=== PATIENT | female | born 1950 | race Caucasian/White ===

== ENCOUNTER 2022-01-03 15:47 | Inpatient (IN) | payer MEDICAID ==
[~2022-01-03] VITALS: Ht 154.9 cm; Wt 73.2 kg
[2022-01-03] MEDS ORDERED: LOSA-381 PO (16:02)
[2022-01-03] MEDS ORDERED: METO25 PO (16:02)
[2022-01-03] MEDS ORDERED: NAPR-1197 PO (16:02)
[2022-01-03] MEDS ORDERED: ASPI-1450 PO (16:02)
[2022-01-03 16:32] LABS: BASOPHILS % (AUTO) 0.7 % (0.0-2.0); EOSINOPHILS % (AUTO) 1.5 % (1.0-6.0); HEMATOCRIT 34.1 % (36-46); HEMOGLOBIN 11.3 g/dL (12.0-16.0); LYMPHOCYTES # (AUTO) 1.2 K/uL (1.0-4.8); LYMPHOCYTES % (AUTO) 13.5 % (22.0-44.0); MEAN CORPUSCULAR HEMOGLOBIN 27.7 pg (26.0-34.0); MEAN CORPUSCULAR VOLUME 84 fL (80-100); MONOCYTES # (AUTO) 1.2 K/uL (0.1-1.0); MONOCYTES % (AUTO) 13.7 % (2.0-9.0); NEUTROPHILS # (AUTO) 6.2 K/uL (1.8-7.7); NEUTROPHILS % (AUTO) 70.6 % (40.0-70.0); PLATELET COUNT (AUTO) 173 K/uL (150-450); RED BLOOD CELL COUNT(AUTO) 4.07 MIL/uL (4.00-5.20); RED CELL DISTRIBUTION WIDTH 15.9 % (11.5-14.5)
[2022-01-03 16:41] LABS: CALCIUM, TOTAL 9.2 mg/dL (8.8-10.5); CREATININE 1.07 mg/dL (0.60-1.30); POTASSIUM 3.2 mmol/L (3.5-5.1)
[2022-01-03] MEDS ORDERED: SODIUM CHLORIDE 0.9% 100 ML ONE ×2 (16:45→17:12)
[2022-01-03] MEDS ORDERED: IOHEXOL 350 MG/ML 100 ML VIAL ONE (16:45)
[2022-01-03 16:46] LABS: INR 1.2 (0.9-1.1); PROTHROMBIN TIME 12.3 SEC (9.4-11.6)
[2022-01-03 16:47] LABS: ALBUMIN 3.8 g/dL (3.4-5.0); BILIRUBIN,TOTAL 0.7 mg/dL (0.1-1.0); TOTAL PROTEIN, SERUM 7.9 g/dL (6.4-8.2)
[2022-01-03] MEDS ORDERED: WATER FOR INJECTION STERILE IV ONE ×4 (17:00)
[2022-01-03] MEDS ORDERED: ALTEPLASE IV ONE ×4 (17:00)
[2022-01-03] MEDS ORDERED: ALTEPLASE PER STROKE PROTOCOL CLINICAL ONE (17:00)
[2022-01-03 17:33] LABS: COVID AG,FIA SOURCE NASOPHARYNGEAL
[2022-01-03] MEDS ORDERED: ONDANSETRON HCL 4 MG/2 ML VIAL IVP PRN ×2 (18:30)
[2022-01-03] MEDS ORDERED: ACETAMINOPHEN 325 MG TABLET PO PRN (18:30)
[2022-01-03 18:53] LABS: CHOL/HDL RATIO 2.2 (3.9-5.7)
[2022-01-03] MEDS: POTASSIUM CHL 10 MEQ/WATER 50 ML IV SCH ×3 (18:54→21:03)
[2022-01-03 18:55] LABS: HEMOGLOBIN A1C 7.9 % (3.8-5.6)
[2022-01-03] MEDS: OXYGEN THERAPY IH SCH (21:49)
[2022-01-03] MEDS ORDERED: DEXTROSE 50%-WATER 25 GM/50 ML SYRINGE IVP PRN (22:15)
[2022-01-03] MEDS: ACETAMINOPHEN 325 MG TABLET PO PRN (23:28)
[2022-01-03] MEDS ORDERED: SODIUM CHLORIDE 0.9% 250 ML IV ONE (23:38)
[2022-01-03] MEDS: CefTRIAXone 1 GM/DEXTROSE 50 ML IV SCH (23:57)
[2022-01-04] VITALS: BP 130/70
[2022-01-04] MEDS ORDERED: PNEUMOCOCCAL VACCINE POLYVALENT 0.5 ML VIAL [PPSV23] IM. ONE (00:45)
[2022-01-04] MEDS: AZITHROMYCIN 500 MG/NS 250 ML IV SCH (03:46)
[2022-01-04 04:00] VITALS: BP 116/58
[2022-01-04 05:17] LABS: BASOPHILS % (AUTO) 0.6 % (0.0-2.0); EOSINOPHILS % (AUTO) 3.1 % (1.0-6.0); HEMATOCRIT 32.9 % (36-46); HEMOGLOBIN 10.8 g/dL (12.0-16.0); LYMPHOCYTES # (AUTO) 1.9 K/uL (1.0-4.8); LYMPHOCYTES % (AUTO) 21.2 % (22.0-44.0); MEAN CORPUSCULAR HEMOGLOBIN 27.9 pg (26.0-34.0); MEAN CORPUSCULAR VOLUME 85 fL (80-100); MONOCYTES # (AUTO) 1.3 K/uL (0.1-1.0); MONOCYTES % (AUTO) 14.7 % (2.0-9.0); NEUTROPHILS # (AUTO) 5.4 K/uL (1.8-7.7); NEUTROPHILS % (AUTO) 60.4 % (40.0-70.0); PLATELET COUNT (AUTO) 157 K/uL (150-450); RED BLOOD CELL COUNT(AUTO) 3.88 MIL/uL (4.00-5.20); RED CELL DISTRIBUTION WIDTH 15.8 % (11.5-14.5)
[2022-01-04 05:43] LABS: ANION GAP 7 mmol/L (8-16); CALCIUM, TOTAL 8.6 mg/dL (8.8-10.5); CARBON DIOXIDE 31 mmol/L (22-29); CHLORIDE 97 mmol/L (98-107); CREATININE 0.99 mg/dL (0.60-1.30); GLUCOSE,RANDOM 69 mg/dL (70-110); POTASSIUM 3.3 mmol/L (3.5-5.1); SODIUM SERUM 135 mmol/L (136-145); UREA NITROGEN, BLOOD 34 mg/dL (7-18)
[2022-01-04 05:57] LABS: GLOMERULAR FILTR. RATE CALC 55 mL/min (>60)
[2022-01-04 06:26] LABS: GLUCOSE,POINT OF CARE 72 MG/DL (70-110)
[2022-01-04 08:00] VITALS: BP 121/69
[2022-01-04 09:08] LABS: FREE T4 (FREE THYROXINE) 1.73 ng/dL (0.76-1.46)
[2022-01-04] MEDS: OXYGEN THERAPY IH SCH ×2 (09:23→20:24)
[2022-01-04 12:00] VITALS: BP 127/64
[2022-01-04 12:36] LABS: GLUCOSE,POINT OF CARE 65 MG/DL (70-110)
[2022-01-04 13:46] LABS: GLUCOSE,POINT OF CARE 191 MG/DL (70-110)
[2022-01-04 14:16] LABS: APPEARANCE,URINE CLEAR (CLEAR); BILIRUBIN,URINE NEGATIVE (NEGATIVE); GLUCOSE, URINE (UA) NEGATIVE (NEGATIVE); KETONES,URINE NEGATIVE (NEGATIVE); LEUKOCYTE ESTERASE ,URINE NEGATIVE (NEGATIVE); NITRATE,URINE NEGATIVE (NEGATIVE); OCCULT BLOOD,URINE LARGE (NEGATIVE); PROTEIN,URINE NEGATIVE (NEGATIVE); SPECIFIC GRAVITIY, URINE 1.011 (1.003-1.030); UROBILINOGEN,URINE <=1.0 mg/dL (<=1.0)
[2022-01-04 14:24] LABS: BACTERIA,URINE None Seen /HPF (None Seen); SQUAMOUS EPITHELIAL CELL,UR Few /LPF (None Seen); WBC,URINE 0-2 /HPF (0-5)
[2022-01-04] MEDS: POTASSIUM CHL 10 MEQ/WATER 50 ML IV PRN ×3 (15:25→20:25)
[2022-01-04 16:00] VITALS: BP 127/64
[2022-01-04] MEDS ORDERED: SODIUM CHLORIDE 0.9% 250 ML IV ONE ×2 (16:02→20:33)
[2022-01-04 19:21] LABS: GLUCOSE,POINT OF CARE 84 MG/DL (70-110)
[2022-01-04 20:00] VITALS: BP 131/75
[2022-01-04] MEDS ORDERED: ASPIRIN 81 MG CHEWABLE TABLET PO SCH (21:00)
[2022-01-04] MEDS: INSULIN GLARGINE,HUM.REC.ANLOG 100 UNITS/ML SQ SCH (21:00)
[2022-01-04] MEDS: CefTRIAXone 1 GM/DEXTROSE 50 ML IV SCH (22:47)
[2022-01-05] VITALS: BP 134/75
[2022-01-05] MEDS: AZITHROMYCIN 500 MG/NS 250 ML IV SCH (02:55)
[2022-01-05 04:00] VITALS: BP 126/69
[2022-01-05 05:17] LABS: BASOPHILS % (AUTO) 0.8 % (0.0-2.0); EOSINOPHILS % (AUTO) 6.2 % (1.0-6.0); HEMATOCRIT 32.7 % (36-46); HEMOGLOBIN 10.8 g/dL (12.0-16.0); LYMPHOCYTES # (AUTO) 1.2 K/uL (1.0-4.8); LYMPHOCYTES % (AUTO) 16.8 % (22.0-44.0); MEAN CORPUSCULAR VOLUME 85 fL (80-100); NEUTROPHILS # (AUTO) 4.6 K/uL (1.8-7.7); NEUTROPHILS % (AUTO) 62.2 % (40.0-70.0); PLATELET COUNT (AUTO) 184 K/uL (150-450); RED BLOOD CELL COUNT(AUTO) 3.86 MIL/uL (4.00-5.20); RED CELL DISTRIBUTION WIDTH 15.6 % (11.5-14.5)
[2022-01-05 05:38] LABS: ALBUMIN 3.1 g/dL (3.4-5.0); BILIRUBIN,TOTAL 0.4 mg/dL (0.1-1.0); CALCIUM, TOTAL 8.7 mg/dL (8.8-10.5); CHOL/HDL RATIO 2.6 (3.9-5.7); CREATININE 0.95 mg/dL (0.60-1.30); POTASSIUM 3.5 mmol/L (3.5-5.1); TOTAL PROTEIN, SERUM 6.9 g/dL (6.4-8.2)
[2022-01-05 06:56] LABS: GLUCOSE,POINT OF CARE 110 MG/DL (70-110)
[2022-01-05 07:01] LABS: GLUCOSE,POINT OF CARE 77 MG/DL (70-110)
[2022-01-05 08:00] VITALS: BP 132/69
[2022-01-05] MEDS: OXYGEN THERAPY IH SCH ×2 (08:21→20:30)
[2022-01-05] MEDS ORDERED: ASPIRIN 81 MG CHEWABLE TABLET PO ONE (09:00)
[2022-01-05] MEDS ORDERED: AMIODARONE HCL 360 MG in DEXTROSE 5%-WATER 242.8 ML IV ONE (11:30)
[2022-01-05] MEDS ORDERED: AMIODARONE HCL 150 MG in DEXTROSE 5%-WATER 97 ML IV ONE (11:30)
[2022-01-05 12:00] VITALS: BP 140/79
[2022-01-05] MEDS: ACETAMINOPHEN 325 MG TABLET PO PRN (15:07)
[2022-01-05] MEDS ORDERED: POTASSIUM CHLORIDE 20 MEQ ER TABLET PO PRN ×3 (15:30→15:45)
[2022-01-05] MEDS: POTASSIUM CHLORIDE 20 MEQ ER TABLET PO PRN (15:38)
[2022-01-05 16:00] VITALS: BP 152/76
[2022-01-05 17:06] LABS: GLUCOSE,POINT OF CARE 83 MG/DL (70-110)
[2022-01-05] MEDS: INSULIN LISPRO 100 UNITS/ML SQ PRN (17:11)
[2022-01-05] MEDS ORDERED: AMIODARONE HCL 540 MG in DEXTROSE 5%-WATER 239.2 ML IV ONE (17:30)
[2022-01-05 20:00] VITALS: BP 145/75
[2022-01-05] MEDS: INSULIN GLARGINE,HUM.REC.ANLOG 100 UNITS/ML SQ SCH (20:45)
[2022-01-05 20:46] LABS: GLUCOSE,POINT OF CARE 146 MG/DL (70-110)
[2022-01-05 20:46] LABS: GLUCOSE,POINT OF CARE 133 MG/DL (70-110)
[2022-01-05] MEDS: CefTRIAXone 1 GM/DEXTROSE 50 ML IV SCH (22:02)
[2022-01-06] VITALS: BP 135/72
[2022-01-06] MEDS ORDERED: SODIUM CHLORIDE 0.9% 250 ML IV ONE ×2 (02:14→21:05)
[2022-01-06] MEDS: AZITHROMYCIN 500 MG/NS 250 ML IV SCH (03:54)
[2022-01-06 04:00] VITALS: BP 137/69
[2022-01-06] MEDS: INSULIN LISPRO 100 UNITS/ML SQ PRN ×3 (05:46→21:15)
[2022-01-06 05:47] LABS: BASOPHILS % (AUTO) 0.7 % (0.0-2.0); EOSINOPHILS % (AUTO) 5.4 % (1.0-6.0); HEMATOCRIT 32.5 % (36-46); HEMOGLOBIN 10.4 g/dL (12.0-16.0); LYMPHOCYTES # (AUTO) 1.6 K/uL (1.0-4.8); LYMPHOCYTES % (AUTO) 15.9 % (22.0-44.0); MEAN CORPUSCULAR HEMOGLOBIN 27.1 pg (26.0-34.0); MEAN CORPUSCULAR VOLUME 85 fL (80-100); MONOCYTES % (AUTO) 9.8 % (2.0-9.0); NEUTROPHILS # (AUTO) 6.8 K/uL (1.8-7.7); NEUTROPHILS % (AUTO) 68.2 % (40.0-70.0); PLATELET COUNT (AUTO) 200 K/uL (150-450); RED BLOOD CELL COUNT(AUTO) 3.83 MIL/uL (4.00-5.20); RED CELL DISTRIBUTION WIDTH 15.6 % (11.5-14.5)
[2022-01-06 05:56] LABS: CALCIUM, TOTAL 8.5 mg/dL (8.8-10.5); CREATININE 1.03 mg/dL (0.60-1.30); POTASSIUM 3.9 mmol/L (3.5-5.1)
[2022-01-06 08:00] VITALS: BP 155/85
[2022-01-06] MEDS: OXYGEN THERAPY IH SCH ×2 (08:00→19:58)
[2022-01-06] MEDS: APIXABAN 2.5 MG TABLET PO SCH ×2 (10:25→21:14)
[2022-01-06 12:00] VITALS: BP 156/99
[2022-01-06] MEDS: AMIODARONE HCL 750 MG in DEXTROSE 5%-WATER 485 ML IV SCH (12:23)
[2022-01-06] MEDS: METOPROLOL SUCCINATE 50 MG ER TABLET PO SCH ×2 (13:14→13:23)
[2022-01-06 14:06] LABS: GLUCOSE,POINT OF CARE 239 MG/DL (70-110)
[2022-01-06 14:06] LABS: GLUCOSE,POINT OF CARE 169 MG/DL (70-110)
[2022-01-06 16:00] VITALS: BP 160/88
[2022-01-06 19:41] LABS: GLUCOSE,POINT OF CARE 201 MG/DL (70-110)
[2022-01-06 20:00] VITALS: BP 136/107
[2022-01-06] MEDS: CefTRIAXone 1 GM/DEXTROSE 50 ML IV SCH (21:14)
[2022-01-06] MEDS: INSULIN GLARGINE,HUM.REC.ANLOG 100 UNITS/ML SQ SCH (21:18)
[2022-01-07] VITALS: BP 147/89
[2022-01-07 02:16] LABS: GLUCOSE,POINT OF CARE 203 MG/DL (70-110)
[2022-01-07 04:00] VITALS: BP 132/75
[2022-01-07] MEDS: AZITHROMYCIN 500 MG/NS 250 ML IV SCH (04:09)
[2022-01-07] MEDS: ACETAMINOPHEN 325 MG TABLET PO PRN (04:13)
[2022-01-07 06:16] LABS: BASOPHILS % (AUTO) 0.2 % (0.0-2.0); EOSINOPHILS % (AUTO) 1.7 % (1.0-6.0); HEMATOCRIT 31.2 % (36-46); HEMOGLOBIN 10.1 g/dL (12.0-16.0); LYMPHOCYTES # (AUTO) 1.5 K/uL (1.0-4.8); LYMPHOCYTES % (AUTO) 10.5 % (22.0-44.0); MEAN CORPUSCULAR HEMOGLOBIN 27.6 pg (26.0-34.0); MEAN CORPUSCULAR HGB CONC 32.5 G/dL (31.0-37.0); MEAN CORPUSCULAR VOLUME 85 fL (80-100); MONOCYTES # (AUTO) 1.2 K/uL (0.1-1.0); MONOCYTES % (AUTO) 8.4 % (2.0-9.0); NEUTROPHILS # (AUTO) 11.6 K/uL (1.8-7.7); NEUTROPHILS % (AUTO) 79.2 % (40.0-70.0); PLATELET COUNT (AUTO) 215 K/uL (150-450); RED BLOOD CELL COUNT(AUTO) 3.68 MIL/uL (4.00-5.20); RED CELL DISTRIBUTION WIDTH 15.5 % (11.5-14.5)
[2022-01-07] MEDS: INSULIN LISPRO 100 UNITS/ML SQ PRN ×4 (06:17→21:22)
[2022-01-07 06:26] LABS: GLUCOMETER DEV NAME(LOC) 5S.1B; GLUCOSE,POINT OF CARE 187 MG/DL (70-110)
[2022-01-07 06:28] LABS: ALBUMIN 2.8 g/dL (3.4-5.0); BILIRUBIN,TOTAL 0.5 mg/dL (0.1-1.0); CALCIUM, TOTAL 8.6 mg/dL (8.8-10.5); CREATININE 0.98 mg/dL (0.60-1.30); POTASSIUM 3.9 mmol/L (3.5-5.1); TOTAL PROTEIN, SERUM 6.8 g/dL (6.4-8.2)
[2022-01-07 07:09] VITALS: BP 139/68
[2022-01-07] MEDS: APIXABAN 2.5 MG TABLET PO SCH ×2 (08:10→21:19)
[2022-01-07] MEDS: OXYGEN THERAPY IH SCH ×2 (08:10→19:55)
[2022-01-07] MEDS: METOPROLOL SUCCINATE 50 MG ER TABLET PO SCH (09:35)
[2022-01-07] MEDS: POTASSIUM CHLORIDE 20 MEQ ER TABLET PO PRN (10:55)
[2022-01-07 11:27] VITALS: BP 132/72
[2022-01-07] MEDS: AMIODARONE HCL 750 MG in DEXTROSE 5%-WATER 485 ML IV SCH (12:30)
[2022-01-07 15:01] VITALS: BP 143/73
[2022-01-07 18:36] LABS: APPEARANCE,URINE HAZY (CLEAR); BILIRUBIN,URINE NEGATIVE (NEGATIVE); GLUCOSE, URINE (UA) 150-200 mg/dL (NEGATIVE); KETONES,URINE NEGATIVE (NEGATIVE); LEUKOCYTE ESTERASE ,URINE LARGE (NEGATIVE); NITRATE,URINE NEGATIVE (NEGATIVE); OCCULT BLOOD,URINE LARGE (NEGATIVE); PH,URINE 5.5 (5.0-8.0); PROTEIN,URINE 100-200,SEE CONFIRM mg/dL (NEGATIVE); SPECIFIC GRAVITIY, URINE 1.022 (1.003-1.030); UROBILINOGEN,URINE <=1.0 mg/dL (<=1.0)
[2022-01-07 18:51] LABS: GLUCOMETER DEV NAME(LOC) 5N.1C; GLUCOSE,POINT OF CARE 176 MG/DL (70-110)
[2022-01-07 18:51] LABS: GLUCOMETER DEV NAME(LOC) 5N.1C; GLUCOSE,POINT OF CARE 164 MG/DL (70-110)
[2022-01-07 18:56] LABS: BACTERIA,URINE Few /HPF (None Seen); RBC,URINE 26-50 /HPF (0-2); SQUAMOUS EPITHELIAL CELL,UR Many /LPF (None Seen); SULFOSALICYLIC ACID,URINE 1+ (Negative)
[2022-01-07 19:13] VITALS: BP 139/80
[2022-01-07 20:22] LABS: GLUCOMETER DEV NAME(LOC) 5N.1C; GLUCOSE,POINT OF CARE 182 MG/DL (70-110)
[2022-01-07] MEDS: AMIODARONE HCL 200 MG TABLET PO SCH (21:19)
[2022-01-07] MEDS: INSULIN GLARGINE,HUM.REC.ANLOG 100 UNITS/ML SQ SCH (21:23)
[2022-01-07] MEDS ORDERED: SODIUM CHLORIDE 0.9% 250 ML IV ONE (21:37)
[2022-01-07] MEDS: CefTRIAXone 1 GM/DEXTROSE 50 ML IV SCH (22:21)
[2022-01-08 00:08] VITALS: BP 116/72
[2022-01-08] MEDS: AZITHROMYCIN 500 MG/NS 250 ML IV SCH (03:10)
[2022-01-08 04:56] VITALS: BP 136/50
[2022-01-08 07:27] VITALS: BP 135/78
[2022-01-08] MEDS: OXYGEN THERAPY IH SCH ×2 (08:00→20:06)
[2022-01-08] MEDS: APIXABAN 2.5 MG TABLET PO SCH ×2 (08:21→21:05)
[2022-01-08] MEDS: AMIODARONE HCL 200 MG TABLET PO SCH ×2 (08:21→21:05)
[2022-01-08] MEDS: METOPROLOL SUCCINATE 50 MG ER TABLET PO SCH (08:21)
[2022-01-08] MEDS: ATORVASTATIN CALCIUM 10 MG TABLET PO SCH (08:22)
[2022-01-08 10:49] VITALS: BP 128/74
[2022-01-08] MEDS: INSULIN LISPRO 100 UNITS/ML SQ PRN ×3 (12:16→21:07)
[2022-01-08 15:22] VITALS: BP 140/80
[2022-01-08 20:06] LABS: GLUCOMETER DEV NAME(LOC) 5S.2B; GLUCOSE,POINT OF CARE 203 MG/DL (70-110)
[2022-01-08 20:12] VITALS: BP 129/87
[2022-01-08] MEDS: INSULIN GLARGINE,HUM.REC.ANLOG 100 UNITS/ML SQ SCH (21:06)
[2022-01-08] MEDS ORDERED: INSULIN GLARGINE,HUM.REC.ANLOG 100 UNITS/ML SQ ONE (22:00)
[2022-01-08 22:24] LABS: BASOPHILS % (AUTO) 0.8 % (0.0-2.0); EOSINOPHILS % (AUTO) 2.2 % (1.0-6.0); HEMATOCRIT 30.3 % (36-46); HEMOGLOBIN 9.7 g/dL (12.0-16.0); LYMPHOCYTES # (AUTO) 1.4 K/uL (1.0-4.8); LYMPHOCYTES % (AUTO) 10.6 % (22.0-44.0); MEAN CORPUSCULAR HGB CONC 31.9 G/dL (31.0-37.0); MEAN CORPUSCULAR VOLUME 85 fL (80-100); MONOCYTES # (AUTO) 1.2 K/uL (0.1-1.0); MONOCYTES % (AUTO) 9.3 % (2.0-9.0); NEUTROPHILS # (AUTO) 10.3 K/uL (1.8-7.7); NEUTROPHILS % (AUTO) 77.1 % (40.0-70.0); PLATELET COUNT (AUTO) 282 K/uL (150-450); RED BLOOD CELL COUNT(AUTO) 3.58 MIL/uL (4.00-5.20); RED CELL DISTRIBUTION WIDTH 15.6 % (11.5-14.5)
[2022-01-08 22:31] LABS: GLUCOMETER DEV NAME(LOC) 5N.1C; GLUCOSE,POINT OF CARE 135 MG/DL (70-110)
[2022-01-08 22:31] LABS: GLUCOMETER DEV NAME(LOC) 5S.1B; GLUCOSE,POINT OF CARE 243 MG/DL (70-110)
[2022-01-08 22:42] LABS: CREATININE 1.04 mg/dL (0.60-1.30)
[2022-01-08 22:49] LABS: ALBUMIN 2.8 g/dL (3.4-5.0); BILIRUBIN,TOTAL 0.4 mg/dL (0.1-1.0); TOTAL PROTEIN, SERUM 7.2 g/dL (6.4-8.2)
[2022-01-08] MEDS: CefTRIAXone 1 GM/DEXTROSE 50 ML IV SCH (23:14)
[2022-01-08] MEDS ORDERED: SODIUM CHLORIDE 0.9% 1,000 ML ONE (23:20)
[2022-01-09 00:14] VITALS: BP 128/70
[2022-01-09] MEDS: AZITHROMYCIN 500 MG/NS 250 ML IV SCH (04:16)
[2022-01-09 04:41] VITALS: BP 123/71
[2022-01-09 06:16] LABS: GLUCOMETER DEV NAME(LOC) 5S.2B; GLUCOSE,POINT OF CARE 164 MG/DL (70-110)
[2022-01-09 06:46] LABS: BASOPHILS % (AUTO) 0.6 % (0.0-2.0); EOSINOPHILS % (AUTO) 2.8 % (1.0-6.0); HEMATOCRIT 30.8 % (36-46); HEMOGLOBIN 10.1 g/dL (12.0-16.0); LYMPHOCYTES # (AUTO) 1.2 K/uL (1.0-4.8); LYMPHOCYTES % (AUTO) 11.8 % (22.0-44.0); MEAN CORPUSCULAR HEMOGLOBIN 27.8 pg (26.0-34.0); MEAN CORPUSCULAR HGB CONC 32.8 G/dL (31.0-37.0); MEAN CORPUSCULAR VOLUME 85 fL (80-100); MONOCYTES % (AUTO) 9.1 % (2.0-9.0); NEUTROPHILS # (AUTO) 7.9 K/uL (1.8-7.7); NEUTROPHILS % (AUTO) 75.7 % (40.0-70.0); PLATELET COUNT (AUTO) 287 K/uL (150-450); RED BLOOD CELL COUNT(AUTO) 3.64 MIL/uL (4.00-5.20); RED CELL DISTRIBUTION WIDTH 15.4 % (11.5-14.5)
[2022-01-09 07:10] LABS: ALBUMIN 2.7 g/dL (3.4-5.0); BILIRUBIN,TOTAL 0.4 mg/dL (0.1-1.0); CREATININE 1.08 mg/dL (0.60-1.30); POTASSIUM 4.1 mmol/L (3.5-5.1); TOTAL PROTEIN, SERUM 7.2 g/dL (6.4-8.2)
[2022-01-09 08:36] LABS: GLUCOMETER DEV NAME(LOC) 5S.2B; GLUCOSE,POINT OF CARE 130 MG/DL (70-110)
[2022-01-09] MEDS: METOPROLOL SUCCINATE 50 MG ER TABLET PO SCH (08:50)
[2022-01-09] MEDS: ATORVASTATIN CALCIUM 10 MG TABLET PO SCH (08:50)
[2022-01-09] MEDS: APIXABAN 2.5 MG TABLET PO SCH (08:50)
[2022-01-09] MEDS ORDERED: AMIODARONE HCL 200 MG TABLET PO SCH (09:00)
[2022-01-09] MEDS: INSULIN LISPRO 100 UNITS/ML SQ PRN (12:49)
[2022-01-09] MEDS ORDERED: METO-391 PO (13:46)
[2022-01-09] MEDS ORDERED: AMOX1TAB16 PO (13:46)
[2022-01-09] MEDS ORDERED: INSLAN SQ (13:46)
[2022-01-09] MEDS ORDERED: AMIO200 PO (13:46)
[2022-01-09] MEDS ORDERED: ATOR10TA69 PO (13:46)
[2022-01-09] MEDS ORDERED: APIX2.5T PO (13:46)
[2022-01-09] MEDS ORDERED: METF-81 PO (13:59)
[2022-01-09] MEDS ORDERED: INSULIN GLARGINE,HUM.REC.ANLOG 100 UNITS/ML SQ SCH (21:00)
[2022-01-09 21:21] LABS: GLUCOMETER DEV NAME(LOC) 5S.1B; GLUCOSE,POINT OF CARE 239 MG/DL (70-110)
== END 2022-01-09 15:05 | disposition home or self-care (01) | DRG 45 ==
LOC: EMS 15:47 → ICU 20:58 → 5S 01-07 05:40
PROVIDERS: ADMIT Internal Medicine; ATTEND Internal Medicine
DX: I63.9 Cerebral infarction, unspecified (principal); A41.9 Sepsis, unspecified organism; J18.9 Pneumonia, unspecified organism; I48.92 Unspecified atrial flutter; E87.1 Hypo-osmolality and hyponatremia; R47.01 Aphasia; I11.9 Hypertensive heart disease without heart failure; I48.91 Unspecified atrial fibrillation; R47.81 Slurred speech; E11.9 Type 2 diabetes mellitus without complications; D64.9 Anemia, unspecified; E78.5 Hyperlipidemia, unspecified; I65.23 Occlusion and stenosis of bilateral carotid arteries; N39.0 Urinary tract infection, site not specified; R77.8 Other specified abnormalities of plasma proteins; Z20.822 Contact with and (suspected) exposure to COVID-19; Z79.01 Long term (current) use of anticoagulants; Z79.82 Long term (current) use of aspirin; Z86.73 Personal history of transient ischemic attack (TIA), and cerebral infarction without residual deficits; Z79.84 Long term (current) use of oral hypoglycemic drugs; Z79.899 Other long term (current) drug therapy
CPT/HCPCS: 70450; 70496; 70551; 71045; 80048; 80053; 80061; 81001; 81002; 82962; 83036; 83735; 83930; 83935; 84132; 84145; 84300; 84439; 84443; 84484; 85025; 85610; 86850; 86900; 86901; 87040; 87081; 87086; 87186; 93005; 93306; 93880; 97110; 97112; 97116; 97140; 97162; 97166; 97530; 97535; 99291; G0378; J0282; J0456; J0696; J1815; J2997; J3480; J7030; J7050; J7060; Q9967; 36415-L1; 36415-TC